=== PATIENT | female | born 1950 | race Caucasian/White ===

== ENCOUNTER 2022-12-17 10:56 | Emergency (ER) | payer MEDICARE, MEDICAID ==
[2022-12-17 11:33] LABS: BILIRUBIN,URINE NEGATIVE (NEGATIVE); GLUCOSE, URINE (UA) 250 mg/dL (NEGATIVE); KETONES,URINE (UA) NEGATIVE (NEGATIVE); LEUKOCYTE ESTERASE, URINE LARGE (NEGATIVE); NITRITE,URINE NEGATIVE (NEGATIVE); OCCULT BLOOD,URINE LARGE (NEGATIVE); PROTEIN,URINE 30 mg/dL (NEGATIVE); UROBILINOGEN,URINE 0.2 (NORMAL) E.U./dL (NORMAL)
[2022-12-17 11:41] LABS: CLARITY,URINE SL. CLOUDY (CLEAR)
[2022-12-17 11:42] LABS: BACTERIA,URINE Few /HPF (None Seen); SQUAMOUS EPITHELIAL CELL,UR RARE Squamous (<= Few); WBC CLUMPS,URINE PRESENT; WBC,URINE >25 /HPF (0-5)
[2022-12-17] MEDS ORDERED: PHENAZOPYRIDINE 100 MG TABLET PO STA (12:07)
[2022-12-17] MEDS ORDERED: NITROFURANTOIN MACRO 100 MG CAPSULE PO STA (12:07)
--- NOTE | 2022-12-17 12:10 | ED Physician Documentation ---
History of Present Illness - Stated complaint Stated Complaint: F - Chief complaint Chief Complaint: UTI - History obtained from History obtained from: Patient - Additonal information Additional information: The patient comes the emergency department chief complaint of dysuria that started around 3:00 this morning. She states that she has a pain in her suprapubic region which gets worse when she urinates. The patient denies any other complaints at this time. No fever or chills. No nausea or vomiting. She has had urinary tract infections before and states this feels the same. Review of Systems Constitutional: reports: Reviewed and negative Eyes: reports: Reviewed and negative Ears: reports: Reviewed and negative Nose: reports: Reviewed and negative Throat: reports: Reviewed and negative Cardiac: reports: Reviewed and negative Respiratory: reports: Reviewed and negative GI: reports: Abdominal Pain : reports: Dysuria, Frequency Skin: reports: Reviewed and negative Musculoskeletal: reports: Reviewed and negative Neurologic: reports: Reviewed and negative Psychiatric: reports: Reviewed and negative Endocrine: reports: Reviewed and negative Immunocompromised: reports: Reviewed and negative PD PAST MEDICAL HISTORY - Present Medications Home Medications: Ambulatory Orders Medication Instructions Recorded Confirmed Nitrofurantoin [Macrobid] 100 mg PO BID #14 cap 12/17/22 Phenazopyridine HCl [Pyridium] 200 mg PO TID #6 tablet 12/17/22 - Allergies Allergies/Adverse Reactions: Allergies Allergy/AdvReac Type Severity Reaction Status Date / Time aspirin Allergy Cramps Verified 12/17/22 11:06 codeine Allergy Unknown Verified 12/17/22 11:06 trazodone Allergy Unknown Verified 12/17/22 11:06 PD ED PE NORMAL - Vitals Vital signs reviewed: Yes - General General: Alert and oriented X 3, No acute distress, Well developed/nourished - HEENT HEENT: Atraumatic, PERRL, EOMI, Moist mucous membranes - Neck Neck: Supple, no meningeal sign - Cardiac Cardiac: RRR, No murmur - Respiratory Respiratory: No respiratory distress, Clear bilaterally - Abdomen Abdomen: Soft, Non distended, Other (Moderate suprapubic tenderness, no rebound or guarding.) - Derm Derm: Normal color, Warm and dry, No rash - Extremities Extremities: No deformity, No edema - Neuro Neuro: Alert and oriented X 3 - Psych Psych: Normal mood, Normal affect Results - Vitals Vitals: Vital Signs - 24 hr 12/17/22 11:01 Temperature 36.2 C L Heart Rate 88 Respiratory 16 Rate Blood Pressure 221/84 H O2 Saturation 99 Oxygen O2 Source Room air - Labs Labs: Laboratory Tests 12/17/22 11:08 Urine Color YELLOW Urine Clarity SL. CLOUDY Urine pH 6.0 Ur Specific [place] 1.015 Urine Protein 30 H Urine Glucose (UA) 250 H Urine Ketones NEGATIVE Urine Occult Blood LARGE H Urine Nitrite NEGATIVE Urine Bilirubin NEGATIVE Urine Urobilinogen 0.2 (NORMAL) Ur Leukocyte Esterase LARGE H Urine RBC 11-25 H Urine WBC >25 H Urine WBC Clumps PRESENT Ur Squamous Epith Cells RARE Squamous Urine Bacteria Few Ur Microscopic Review INDICATED Urine Culture Comments INDICATED PD Medical Decision Making - ED course Complexity details: reviewed results, re-evaluated patient, considered differential, d/w patient ED course: I did order a urinalysis on this patient and upon my review, it was found to be positive for infection. The patient was started on Macrobid and Pyridium here. A prescription for both was sent to the pharmacy of the patient's choice. We have discussed symptomatic management at home and the usual indications for return. Departure - Departure Disposition: Home, Self Care Clinical Impression: Urinary tract infection Qualifiers: Urinary tract infection type: acute cystitis Hematuria presence: with hematuria Qualified Code(s): N30.01 - Acute cystitis with hematuria Condition: Stable Instructions: ED UTI Cystitis Female Prescriptions: Nitrofurantoin [Macrobid] 100 mg PO BID #14 cap Phenazopyridine HCl [Pyridium] 200 mg PO TID #6 tablet Comments: Your urinalysis is positive for infection. You have been given first dose of antibiotics here in the emergency department. Your prescriptions have been electronically transmitted to the [facility] in [place]. Please pick them up today see you can be sure to get your second dose of antibiotics this evening.
[2022-12-17 12:17] VITALS: BP 173/81
== END 2022-12-17 12:17 | disposition home or self-care (01) ==
LOC: ED 10:56
DX: N30.01 Acute cystitis with hematuria (principal)
CPT/HCPCS: 81001; 87086; 87181; 99283; A9270; 81003

== ENCOUNTER 2023-01-25 10:43 | Emergency (ER) | payer MEDICARE, MEDICAID ==
[2023-01-25 13:04] VITALS: BP 143/63
--- NOTE | 2023-01-25 13:27 | ED Physician Documentation ---
PD HPI SKIN - Stated complaint Stated Complaint: STOMACH RASH - Chief complaint Chief Complaint: Wound - History obtained from History obtained from: Patient - History of Present Illness Timing - onset: How many weeks ago (2) Timing - duration: Weeks (2) Associated symptoms: No: Fever, Myalgias, Joint pain, Headache, Facial swelling - Additional information Additional information: Patient is a 72-year-old female who presents to the emergency department complaining of an itchy rash underneath both of her breasts and underneath her pannus of her abdomen. She states nothing makes it better or worse. She believes that it is secondary to having too much soap in her laundry. No fevers. No chills. No drainage. Review of Systems Constitutional: denies: Fever, Chills GI: denies: Vomiting Skin: denies: Rash Musculoskeletal: denies: Neck pain, Back pain Neurologic: denies: Headache PD PAST MEDICAL HISTORY - Past Medical History Past Medical History: Yes Cardiovascular: Hypertension, High cholesterol - Present Medications Home Medications: Ambulatory Orders Medication Instructions Recorded Confirmed Nitrofurantoin [Macrobid] 100 mg PO BID #14 cap 12/17/22 Phenazopyridine HCl [Pyridium] 200 mg PO TID #6 tablet 12/17/22 Nystatin [Nystop] 1 applic TOP BID #30 gm 01/25/23 - Allergies Allergies/Adverse Reactions: Allergies Allergy/AdvReac Type Severity Reaction Status Date / Time aspirin Allergy Cramps Verified 01/25/23 10:58 codeine Allergy Unknown Verified 01/25/23 10:58 trazodone Allergy Unknown Verified 01/25/23 10:58 - Living Situation Living Situation: reports: With family Living Arrangement: reports: At home PD ED PE NORMAL - Vitals Vital signs reviewed: Yes - General General: Alert and oriented X 3, No acute distress - HEENT HEENT: Moist mucous membranes - Neck Neck: Supple, no meningeal sign - Cardiac Cardiac: RRR - Respiratory Respiratory: No respiratory distress, Clear bilaterally - Abdomen Abdomen: Soft, Non tender, Non distended - Derm Derm: Warm and dry, Other (smooth erythematous patches with satellite lesions Underneath the bilateral breasts and pannus) - Neuro Neuro: Alert and oriented X 3 - Psych Psych: Normal mood, Normal affect Results - Vitals Vitals: Vital Signs - 24 hr 01/25/23 01/25/23 10:55 13:02 Temperature 36.4 C L 36.4 C L Heart Rate 65 56 L Respiratory 16 18 Rate Blood Pressure 131/58 H 143/63 H O2 Saturation 100 100 Oxygen O2 Source Room air PD Medical Decision Making - ED course Complexity details: considered differential, d/w patient ED course: Patient with a candidal skin infection underneath the bilateral breasts and underneath the pannus. No signs of secondary infection. We will place on nystatin. We will have her follow-up with her doctor for further care. Patient counseled regarding signs and symptoms for which I believe and urgent re- evaluation would be necessary. Patient with good understanding of and agreement to plan and is comfortable going home at this time This document was made in part using voice recognition software. While efforts are made to proofread this document, sound alike and grammatical errors may occur. Departure - Departure Disposition: 01 Home, Self Care Clinical Impression: Candidiasis Condition: Good Instructions: ED Candidiasis Cutaneous Follow-Up: your,doctor in 1 week [Other] Prescriptions: Nystatin [Nystop] 1 applic TOP BID #30 gm Comments: Please use the powder as directed. Please follow-up with your doctor for further care. Keep the area dry. Discharge Date/Time: 01/25/23 13:35
== END 2023-01-25 13:35 | disposition home or self-care (01) ==
LOC: ED 10:43
DX: B37.2 Candidiasis of skin and nail (principal); I10 Essential (primary) hypertension; E78.00 Pure hypercholesterolemia, unspecified
CPT/HCPCS: 99281; 99283

== ENCOUNTER 2023-03-13 01:19 | Emergency (ER) | payer MEDICARE, MEDICAID ==
[2023-03-13 01:53] VITALS: BP 110/59
--- NOTE | 2023-03-13 03:23 | ED Physician Documentation ---
History of Present Illness - Stated complaint Stated Complaint: LOWER BODY PX - Chief complaint Chief Complaint: General - History obtained from History obtained from: Patient - Additonal information Additional information: HPI from patient. Patient c/o diffuse, chronic pains from arthritis. She says her pain is greatest in posterior aspect of left shoulder, then radiates down the back to bilateral lower back and down both legs. She says none of these pains are new and she takes vicodin and tramadol for this but has run out of both medications. She has appointment this coming Tuesday with her prescribing physician. No recent injury. Review of Systems Musculoskeletal: reports: Back pain, Extremity pain, Joint pain. 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 HEENT: Other Derm: Other - Present Medications Home Medications: Ambulatory Orders Medication Instructions Recorded Confirmed Chlorthalidone 25 mg PO DAILY 03/13/23 03/13/23 Enalapril Maleate [Vasotec] 20 mg PO BID 03/13/23 03/13/23 Gabapentin [Neurontin] 600 mg PO TID 03/13/23 03/13/23 HYDROcod/ACETAM 5/325 [[place] 5/325] 1 - 2 tablet PO Q6H PRN #14 tablet 03/13/23 Hydrocodone/Acetaminophen 1 tab PO DAILY PRN 03/13/23 03/13/23 [Hydrocodone-Acetamin 10-325 mg] Levothyroxine Sodium [Synthroid] 1 tab PO DAILY 03/13/23 03/13/23 Metoprolol Tartrate [Lopressor] 25 mg PO DAILY 03/13/23 03/13/23 Montelukast Sodium 10 mg PO QPM 03/13/23 03/13/23 Omeprazole Magnesium 20 mg PO DAILY 03/13/23 03/13/23 allopurinoL [Zyloprim] 100 mg PO DAILY 03/13/23 03/13/23 cloNIDine [Catapres] 1 tab PO BID 03/13/23 03/13/23 traMADol [Ultram] 50 mg PO BID 03/13/23 03/13/23 traMADol [Ultram] 50 mg PO BID PRN #14 tab 03/13/23 - Allergies Allergies/Adverse Reactions: Allergies Allergy/AdvReac Type Severity Reaction Status Date / Time aspirin Allergy Cramps Verified 03/13/23 01:53 codeine Allergy Unknown Verified 03/13/23 01:53 trazodone Allergy Unknown Verified 03/13/23 01:53 - Social History Does the pt smoke?: No Smoking Status: Never smoker Does the pt drink ETOH?: No Does the pt have substance abuse?: No - Immunizations Immunizations are current?: Yes - POLST Patient has POLST: No PD ED PE NORMAL - Vitals Vital signs reviewed: Yes - General General: Alert and oriented X 3, No acute distress, Well developed/nourished - Back Back: No spinal TTP - Derm Derm: No rash - Extremities Extremities: No edema - Neuro Neuro: Alert and oriented X 3 Results - Vitals Vitals: Oxygen O2 Source Room air PD Medical Decision Making - ED course ED course: Patient presents with diffuse joint pains which she says are chronic and due to arthritis. She has no new c/o, but she has run out of her vicodin and tramadol which she takes for these pains. [place] , I see most recent refill for vicodin was 30-day supply filled 01/31/23 and tramadol filled 01/31/23 (also 30 day supply); thus, she would be due for refills. She says she is sometimes able to skip some doses if the pain is not intense enough to require the medication. She is given doses of tramadol and vicodin in ED and I e-prescribed a short course of both of these medications that should last until she can see her prescribing physician on Tuesday. I am prescribing a short course of short-acting opioid pain medication for this patient. 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 I have discussed that the opioids are for short term therapy only, and will not be refilled from the ED. Departure - Departure Disposition: Home, Self Care Clinical Impression: Arthritis Condition: Good Instructions: ED Chronic Pain Management Prescriptions: HYDROcod/ACETAM 5/325 [[place] 5/325] 1 - 2 tablet PO Q6H PRN #14 tablet PRN Reason: Pain traMADol [Ultram] 50 mg PO BID PRN #14 tab PRN Reason: Pain 5-7 Comments: I have electronically submitted prescriptions for tramadol as well as Vicodin to the [facility] pharmacy in [place]. I am prescribing a short course of narcotic pain medication for you. These are potentially dangerous and addictive medications that should be used carefully. These medications may constipate you. Take an [id number] stool softener (docusate) twice daily with plenty of water while taking these medications. If you go 24 hours without a bowel movement, take djiq-[id number] miralax, per package instructions. Do not drink or drive while taking these medications. If you received narcotic or sedating medications while in the emergency department, do not drive for 24 hours. Store this medication in a safe, secure place and out of reach of children. It is a violation of federal law to give or sell this medication to another person or to use in a manner other than prescribed. The ED will not refill narcotic prescriptions, including prescriptions lost or stolen. To dispose of unwanted medications: 1. [facility] at [address] in [place] has a medication drop box. They accept prescription medications (in pill form) Tuesday through Tuesday 9:00 a.m. to 5:00 p.m. 2. [facility] [employer] accepts prescription medications (in pill form only) for disposal year round. Call for more information. 3. Contact the [facility] for the next [facility] sponsored prescription drug collection event. , [phone], or [phone]; Discharge Date/Time: 03/13/23 03:40
[2023-03-13] MEDS ORDERED: traMADol 50 MG TABLET PO STA (03:30)
[2023-03-13] MEDS ORDERED: HYDROcod/ACETAM 5/325 MG TABLET PO STA (03:31)
== END 2023-03-13 03:40 | disposition home or self-care (01) ==
LOC: ED 01:19
DX: M19.90 Unspecified osteoarthritis, unspecified site (principal)
CPT/HCPCS: 99282; 99283; A9270

== ENCOUNTER 2023-07-18 12:19 | Outpatient (CLI) | payer MEDICARE, MEDICAID ==
--- NOTE | 2023-07-18 21:29 | CT Report ---
PROCEDURE: ABDOMEN/PELVIS WO INDICATIONS: HEMATURIA, VAGINAL BLEEDING TECHNIQUE: A CT scan of the abdomen and pelvis was performed without the use of intravenous contrast. Images we re recorded and evaluated at appropriate window settings. Reformats: coronal and sagittal. For radiat ion dose reduction, the following was used: automated exposure control, adjustment of mA and/or kV ac cording to patient size. COMPARISON: None. FINDINGS: Visualized lung bases: No pleural effusion. Liver and biliary tree: Unremarkable noncontrast appearance. Gallbladder: Surgically absent. Spleen: Unremarkable noncontrast appearance. Pancreas: Unremarkable noncontrast appearance. Adrenal glands: Unremarkable noncontrast appearance. Kidneys and ureters: No renal or ureteral stone. No hydroureteronephrosis. Gastrointestinal tract: No bowel obstruction. Moderate hiatal hernia. Mild predominantly sigmoid colo eusebio diverticulosis without evidence of acute diverticulitis. Peritoneal cavity: No free air or free fluid. Bladder: No stones visualized. Pelvic organs: The uterus is not visualized and is presumed surgically absent. Vasculature: No abdominal aortic aneurysm. Lymph nodes: No highly suspicious lymph nodes identified. Musculoskeletal: Degenerative change and left convexity curvature of the thoracolumbar spine. IMPRESSION: No urinary stone or hydroureteronephrosis. Reviewed by: Ryan Sethi MD on 07/18/2023 9:28 PM PDT Approved by: Ryan Sethi MD on 07/18/2023 9:28 PM PDT Station ID: [id number]
== END 2023-07-18 12:20 | disposition home or self-care (01) ==
LOC: DI 12:19
PROVIDERS: ATTEND Urology
DX: N93.9 Abnormal uterine and vaginal bleeding, unspecified (principal); R31.29 Other microscopic hematuria